=== PATIENT | male | born 1955 | race American Indian/Alaskan Native ===

== ENCOUNTER 2021-07-02 08:38 | Day surgery (SDC) | payer MEDICARE, OTHER ==
[2021-06-28 09:58] LABS: Hematocrit 38.6 % (35.5-45.6); Hemoglobin 12.6 gm/dl (11.8-15.2); Mean Corpuscular HGB Conc 33 % (32-34); Mean Corpuscular Volume 93 fl (84-94); Platelet Count 420 K/mm3 (140-440); Red Blood Count 4.15 M/mm3 (3.65-5.03); Red Cell Distribution Width 15.2 % (13.2-15.2)
[2021-06-28 10:18] LABS: BUN/Creatinine Ratio 17; Blood Urea Nitrogen 20 mg/dL (9-20); Calcium 8.9 mg/dL (8.4-10.2); Hemolysis Index 15
[2021-07-02] MEDS ORDERED: ONDANSETRON 4 MG/2 ML INJ IV PRN (09:50)
[2021-07-02] MEDS ORDERED: HYDROmorphone 1 MG/1 ML INJ IV PRN ×2 (09:50)
[2021-07-02] MEDS ORDERED: LACTATED RINGERS 1,000 ML IV SCH (10:00)
--- NOTE | 2021-07-02 10:15 | Anesthesia Day of Surgery ---
Anesthesia Day of Surgery - Day of Surgery Patient Examined: Yes Patient H&P Reviewed: Yes Patient is NPO: Yes
--- NOTE | 2021-07-02 10:15 | Anesthesia Consultation ---
Anesthesia Consult and Med Hx Date of service: 07/02/21 - Airway Anesthetic Teeth Evaluation: Dentures, Edentulous ROM Head & Neck: Adequate Mental/Hyoid Distance: Adequate Mallampati Class: Class I Intubation Access Assessment: Good - Pre-Operative Health Status ASA Pre-Surgery Classification: ASA2 Proposed Anesthetic Plan: General (MAC; GA if needed), MAC - Pulmonary Hx Smoking: No Hx Respiratory Symptoms: No (+2FS) Hx Sleep Apnea: No (SARITHA PRE SCREEN HIGH RISK) - Cardiovascular System Hx Hypertension: Yes (X 10 YRS) - Central Nervous System Hx Psychiatric Problems: Yes (Depression) - Endocrine Hx Non-Insulin Dependent Diabetes: Yes - Hematic Hx Anemia: No Hx Sickle Cell Disease: No - Other Systems Hx Cancer: No Hx Obesity: No
[2021-07-02] MEDS ORDERED: MIDAZOLAM 2 MG/2 ML INJ IV NR (10:21)
[2021-07-02] MEDS ORDERED: BUPIVACAINE/PF (0.25%) 2.5 MG/ML 30 ML VIAL INFILTRATI ONE ×2 (10:46→12:09)
[2021-07-02] MEDS ORDERED: LIDOCAINE (1%) 10 MG/1 ML VIAL 20 ML MDV ONE (10:46)
[2021-07-02] MEDS ORDERED: KETAMINE/STERILE WATER 50 MG/ML SYRINGE ONE (11:22)
[2021-07-02] MEDS ORDERED: MIDAZOLAM 2 MG/2 ML INJ ONE (11:22)
[2021-07-02] MEDS ORDERED: propofoL 200 MG/20 ML VIAL IV ONE (11:27)
--- NOTE | 2021-07-02 12:04 | Short Stay Summary ---
Short Stay Documentation Date of service: 07/02/21 - History Principal diagnosis: right scalp soft tissue mass H&P: obtained from office - Allergies and Medications Current Medications: Allergies Penicillins Allergy (Verified 06/23/21 15:34) Rash lisinopril Adverse Reaction (Verified 07/02/21 10:17) Unknown PT STATES IT MADE HIM COUGH Home Medications Medication Instructions Recorded Confirmed Last Taken Type Insulin Aspart Prot/Insuln Asp 20 unit SQ BID 06/23/21 06/23/21 Unknown History [Insulin Aspart Prot-Insuln Asp] Losartan [Cozaar] 25 mg PO QDAY 06/23/21 06/23/21 Unknown History Metformin HCl [metFORMIN] 1,000 mg PO BID 06/23/21 06/23/21 Unknown History buPROPion [Wellbutrin] 200 mg PO BID 06/23/21 06/23/21 Unknown History hydroCHLOROthiazide [HCTZ] 25 mg PO QDAY 06/23/21 06/23/21 Unknown History Active Medications Hydromorphone HCl (Hydromorphone 1 Mg/1 Ml Inj) 0.25 mg IV Q10MIN PRN PRN Reason: Pain, Moderate (4-6) Stop: 07/02/21 23:00 Hydromorphone HCl (Hydromorphone 1 Mg/1 Ml Inj) 0.5 mg IV Q10MIN PRN PRN Reason: Pain , Severe (7-10) Stop: 07/02/21 23:00 Lactated Ringer's (Lactated Ringers) 1,000 mls @ 100 mls/hr IV DIRECT PHUONG Midazolam HCl (Midazolam 2 Mg/2 Ml Inj) 2 mg IV ONCE NR Stop: 07/02/21 20:00 Ondansetron HCl (Ondansetron 4 Mg/2 Ml Inj) 4 mg IV ONCE PRN PRN Reason: Nausea And Vomiting Stop: 07/02/21 20:00 - Brief post op/procedure progress note Date of procedure: 07/02/21 Pre-op diagnosis: right scalp soft tissue mass Post-op diagnosis: same Procedure: excision right scalp soft tissue mass Anesthesia: MAC, local Findings: Aggregate measurement of 4.5 cm right scalp soft tissue mass, grossly consistent with lipoma Surgeon: HEMA CORRAL Estimated blood loss: minimal Pathology: list (soft tissue mass right scalp) Specimen disposition: to lab Condition: stable - Hospital course Hospital course: Pt observed in PACU and discharged home in stable condition - Disposition Condition at discharge: Good Disposition: 01 HOME / SELF CARE / HOMELESS Short Stay Discharge Plan Activity: other (no driving if taking prescription pain medications) Diet: regular Wound: open to air Follow up with: [facility] [Primary Care Provider] - 7 Days HEMA CORRAL DO [Staff Physician] - 14 Days Prescriptions: traMADoL [Ultram 50 MG tab] 50 mg PO Q6HR PRN #10 tablet PRN Reason: Pain , Severe (7-10)
[2021-07-02] MEDS ORDERED: LIDOCAINE (1%) 10 MG/1 ML VIAL 20 ML MDV INFILTRATI ONE (12:09)
[2021-07-02] MEDS ORDERED: HYDROcodone/ACETAMINOPHEN 5-325 MG TAB PO ONE (12:36)
[2021-07-02] MEDS ORDERED: HYDROcodone/ACETAMINOPHEN 5-325 MG TAB ONE (12:36)
--- NOTE | 2021-07-02 16:35 | Post Anesthesia Evaluation ---
- Post Anesthesia Evaluation Patient Participated: Yes Airway Patent: Yes Stable Respiratory Function: Yes Nausea/Vomiting: No Temp > 96.8F: Yes Pain Manageable: Yes Adequeate Hydration: Yes Anesthesia Complications: No Block Receding Appropriately: Not Applicable Patient on Ventilator: No
[2021-07-02 19:09] VITALS: BP 137/68
--- NOTE | 2021-07-06 14:46 | Operative Report ---
Operative Report Operative Report: Date of procedure: 07/02/21 12:02 Pre-op diagnosis: right scalp soft tissue mass Post-op diagnosis: same Procedure: excision right scalp soft tissue mass Anesthesia: MAC, local Findings: Aggregate measurement of 4.5 cm right scalp soft tissue mass, grossly consistent with lipoma Surgeon: HEMA CORRAL Estimated blood loss: minimal Pathology: list (soft tissue mass right scalp) Specimen disposition: to lab Condition: stable Hospital course: Pt observed in PACU and discharged home in stable condition Condition at discharge: Good Disposition: 01 HOME / SELF CARE / HOMELESS HPI and indication: Patient is a 65-year-old male who presented to the surgery clinic for evaluation of a right scalp mass. He was found to have a soft tissue mass of his right posterior scalp and it was recommended that this be excised. All risks, benefits, alternatives of surgery were discussed with the patient questions answered. Consent was obtained. Procedure in detail: Patient was identified in the preoperative area and the operative site marked. He was taken back to the operating room and placed on the operating room table in right lateral decubitus position with all bony prominences padded appropriately. The right scalp was prepped and draped in usual sterile fashion and a timeout was performed. Local anesthetic was infiltrated into the skin at the intended incision site. An incision was made using a 15 blade over the area of the mass. Dissection was carried down through the subcutaneous tissue using electrocautery until the mass was encountered. The mass appeared lobulated and fatty consistent with a likely lipoma. Mass was circumferentially dissected from surrounding normal tissue and excised from the wound. This measured approximately 4.5 cm. The wound was then irrigated and hemostasis very carefully ensured. The deep layer was closed with interrupted 3-0 Vicryl stitches. The skin was approximated using 3-0 Monocryl subcuticular running stitch and skin glue. At the end of the case, all sponge, instrument, sharp counts were correct x2. The patient was awoken from anesthesia and taken to PACU in stable condition.
== END 2021-07-02 08:39 | disposition home or self-care (01) ==
LOC: OR 08:38
PROVIDERS: ATTEND Surgery
DX: D17.0 Benign lipomatous neoplasm of skin and subcutaneous tissue of head, face and neck (principal); I10 Essential (primary) hypertension; E11.9 Type 2 diabetes mellitus without complications; F32.9 Major depressive disorder, single episode, unspecified; N40.0 Benign prostatic hyperplasia without lower urinary tract symptoms; Z79.82 Long term (current) use of aspirin; Z79.4 Long term (current) use of insulin; Z79.899 Other long term (current) drug therapy; Z98.890 Other specified postprocedural states; Z88.0 Allergy status to penicillin; Z88.8 Allergy status to other drugs, medicaments and biological substances; Z20.822 Contact with and (suspected) exposure to COVID-19
CPT/HCPCS: 21012; 36415; 80048; 82962; 85027; 88304; J2250; J2704; J3490; J7120; U0003